=== PATIENT | female | born 1940 | race Caucasian/White ===

== ENCOUNTER 2017-05-18 04:03 | Emergency (ER) | payer MEDICARE, BC ==
[2017-05-18] MEDS ORDERED: Dexamethasone 4 MG TAB ONE (06:17)
== END 2017-05-18 06:50 | disposition home or self-care (01) ==
LOC: ERS 04:03
DX: K14.8 Other diseases of tongue (principal); I10 Essential (primary) hypertension; Z79.899 Other long term (current) drug therapy; Z79.82 Long term (current) use of aspirin
CPT/HCPCS: 99283; J8540

== ENCOUNTER 2018-01-20 10:47 | Outpatient (CLI) | payer MEDICARE, BC | END 2018-01-20 10:48 | disposition home or self-care (01) | LOC: BICMAMMO 10:47 | PROVIDERS: ATTEND Obstetrics & Gynecology | DX: Z12.31 Encounter for screening mammogram for malignant neoplasm of breast (principal); R92.1 Mammographic calcification found on diagnostic imaging of breast; Z80.3 Family history of malignant neoplasm of breast | CPT/HCPCS: 77063; 77067 ==

== ENCOUNTER 2018-01-25 00:07 | Emergency (ER) | payer MEDICARE, BC ==
[2018-01-25] MEDS ORDERED: Dexamethasone 4 mg/ml Vial ONE ×2 (00:21→00:24)
== END 2018-01-25 02:18 | disposition home or self-care (01) ==
LOC: ERS 00:07
DX: R22.0 Localized swelling, mass and lump, head (principal); I10 Essential (primary) hypertension; Z79.899 Other long term (current) drug therapy; Z79.82 Long term (current) use of aspirin
CPT/HCPCS: 99283; J1100

== ENCOUNTER 2019-02-02 14:37 | Outpatient (CLI) | payer MEDICARE, BC ==
--- NOTE | 2019-02-02 15:22 | MMO ---
Bilateral MAMMO Bilat Screen [facility]. CLINICAL HISTORY: Patient is 78 years old and is seen for screening. The patient has the following family history of breast cancer: daughter, at age 49 and sister. The patient has no personal history of cancer. VIEWS: The views performed were: bilateral craniocaudal with tomosynthesis; bilateral mediolateral oblique with tomosynthesis; and right mediolateral oblique. FILMS COMPARED: The present examination has been compared to prior imaging studies performed at [facility] on 12/19/2014, 12/27/2015, 12/31/2016 and 01/20/2018. This study has been interpreted with the assistance of computer-aided detection. MAMMOGRAM FINDINGS: There are scattered fibroglandular densities. There are stable benign appearing calcifications seen in both breasts. There are also vascular calcifications. There are no suspicious masses, suspicious calcifications, or new areas of architectural distortion. IMPRESSION: THERE IS NO MAMMOGRAPHIC EVIDENCE OF MALIGNANCY. A ROUTINE FOLLOW-UP MAMMOGRAM IN 1 YEAR IS RECOMMENDED. THE RESULTS OF THIS EXAM WERE SENT TO THE PATIENT. ACR BI-RADS Category 2 - Benign finding MAMMOGRAPHY NOTE: 1. A negative mammogram report should not delay a biopsy if a dominant of clinically suspicious mass is present. 2. Approximately 10% to 15% of breast cancers are not detected by mammography. 3. Adenosis and dense breasts may obscure an underlying neoplasm. Reported by: YADIEL HERNANDEZ MD Electonically Signed: [id number]
== END 2019-02-02 14:38 | disposition home or self-care (01) ==
LOC: BICMAMMO 14:37
PROVIDERS: ATTEND Obstetrics & Gynecology
DX: Z12.31 Encounter for screening mammogram for malignant neoplasm of breast (principal); Z80.3 Family history of malignant neoplasm of breast
CPT/HCPCS: 77063; 77067

== ENCOUNTER 2019-03-31 07:49 | Outpatient (CLI) | payer MEDICARE, BC ==
[2019-03-31 08:40] LABS: Estimated GFR-MDRD - POC Greater than 90
--- NOTE | 2019-03-31 09:27 | MRI ---
MRI cervical spine noncontrast: DATE: 03/31/2019 HISTORY: 78-year-old female with cervicalgia and cervical spondylosis. FINDINGS: Vertebral body heights are maintained. No significant spondylolisthesis. Cervical spinal cord is norm al in size and signal. Disc-osteophyte complexes, mostly broad-based, protruding into the anterior aspect of the spinal canal. Ligamentum flavum thickening protrude into the posterior aspect of spinal canal at multiple levels. Moderate and severe bilateral facet DJD at almost all levels. No high-grade disc space narrowing. C1-2: No high-grade central stenosis. C2-3: No high-grade central stenosis or neural foraminal stenosis. Ankylosis of right facet joint. C3-4: Mild to moderate central spinal canal stenosis. Moderate bilateral neural foraminal stenosis. B one marrow edema involving right facet complex. Right facet joint effusion. C4-5: Moderate-severe central spinal canal stenosis. Severe bilateral neural foraminal stenosis, left greater than right. C5-6: Moderate central spinal canal stenosis. Small bilateral nerve root sleeve cysts. Moderate to se [place] right neural foraminal stenosis. Moderate left neural foraminal stenosis. C6-7: Moderate to severe central spinal canal stenosis. Mild bilateral neural foraminal stenosis. Sma ll bilateral nerve root sleeve cysts. C7-T1: Moderate to severe central spinal canal stenosis. Mild to moderate bilateral neural foraminal stenosis. IMPRESSION: 1. Cervical spondylosis with multilevel bilateral high-grade facet osteoarthrosis, including severe, and multilevel moderate degenerative disc disease. 2. Multilevel central spinal canal stenosis and neural foraminal stenosis of varying degrees. 3. Ankylosis of right C2-3 facet joint. 4. Right C3-4 facet arthritis, including joint effusion
--- NOTE | 2019-03-31 10:44 | MRI ---
MRI OF LUMBAR SPINE WITH AND WITHOUT CONTRAST: 03/31/2019 COMPARISON: 09/26/2012. HISTORY: Lumbar stenosis, back pain, multiple prior lumbar spine surgeries. TECHNIQUE: Multiplanar multisequence MR imaging of the lumbar spine obtained with and without contrast. FINDINGS: The sagittal STIR imaging demonstrates no focal area of osseous marrow edema. There is 6 mm of anterolisthesis at L3-4, unchanged when compared to the prior examination. Conus medullaris terminates at the T12-L1 level. T12-L1: No significant central canal or neural foraminal stenosis. L1-2: There is disc space narrowing with disc desiccation, mild bilateral facet hypertrophy, and mild disc bulge. No significant central canal or neural foraminal stenosis. L2-3: There is disc space narrowing and disc desiccation with mild disc bulge causing mild central ca nal stenosis. Bilateral facet hypertrophy present with mild bilateral neural foraminal stenosis. L3-4: Prominent bilateral facet hypertrophy. There is disc space narrowing with disc desiccation and disc bulge. There is severe central canal stenosis and moderate bilateral neural foraminal stenosis, left greater than right. L4-5: There is disc space narrowing with disc desiccation and mild disc bulge causing mild central ca nal stenosis. Mild bilateral facet hypertrophy with mild bilateral neural foraminal stenosis. L5-S1: There is disc space narrowing with disc desiccation and mild disc bulge as well as mild bilate ral facet hypertrophy. Mild bilateral neural foraminal stenosis, right greater than left. Bilateral laminectomy changes are present at L3, L4, and L5 levels. There is a cyst emanating from the upper pole of the right kidney anteriorly measuring 3.1 cm. The imaged retroperitoneal structures appear grossly unremarkable otherwise. The postcontrast imaging demonstrates no abnormal enhancement involving the contents of the thecal sa c, the intervertebral discs, or the imaged osseous structures. Incidental note is made of significant incompletely imaged sigmoid diverticulosis. When compared to the prior examination, the degree of multilevel central canal and neural foraminal s tenosis within the lower lumbar spine is grossly unchanged aside from mild interval worsening in the degree of central canal stenosis at the L3-4 level. IMPRESSION: Postoperative and degenerative change within the lumbar spine as detailed above. Transcribed Date/Time: 03/31/2019 11:10 AM
[2019-03-31] MEDS ORDERED: Magnevist 469MG/ML 20 ML VIAL ONE (11:55)
== END 2019-03-31 07:50 | disposition home or self-care (01) ==
LOC: BICMRI 07:49
PROVIDERS: ATTEND Neurological Surgery
DX: M48.062 Spinal stenosis, lumbar region with neurogenic claudication (principal); M47.816 Spondylosis without myelopathy or radiculopathy, lumbar region; M43.16 Spondylolisthesis, lumbar region; M47.817 Spondylosis without myelopathy or radiculopathy, lumbosacral region; Z98.890 Other specified postprocedural states
CPT/HCPCS: 72141; 72158; 82565; A9579

== ENCOUNTER 2019-05-15 06:56 | Inpatient (IN) | payer MEDICARE, BC ==
[2019-05-12 11:28] VITALS: BMI 30.9
[2019-05-15 08:35] LABS: #Eosinphils 0.2 thou/uL (0.0-0.7); #Lymphocytes 1.6 thou/uL (1.20-3.40); #Monocytes 0.8 thou/uL (0.11-0.59); #Neutrophils 7.9 thou/uL (1.40-6.50); %Basophils 0.3 % (0.0-1.0); %Eosinophils 1.5 % (0.0-10.0); %Lymphocytes 14.9 % (21.0-51.0); %Neutrophils 75.3 % (42.0-75.0); Hemoglobin 14.4 g/dL (12.0-16.0); Mean Corpuscular HGB CONC 34.8 g/dL (32.0-36.0); Mean Corpuscular Hemoglobin 31.8 pg (27.0-31.0); Mean Corpuscular Volume 91.4 fL (78.0-98.0); Mean Platelet Volume 7.4 fL (7.4-10.4); Platelet Count 227 thou/uL (130-400); RBC Distribution Width 11.8 % (11.5-14.5); Red Blood Cell (RBC) Count 4.52 mill/uL (4.20-5.40); White Blood Cell (WBC) Count 10.5 thou/uL (4.8-10.8)
[2019-05-15] MEDS ORDERED: Sodium Chloride 0.9% 10 ML ONE (08:52)
[2019-05-15 08:57] LABS: Bilirubin Negative (Negative); Blood, Urine Large (Negative); Clarity Turbid (Clear); Glucose, Urine (Dipstick) Negative (Negative); Leukocyte Moderate (Negative); Nitrite Negative (Negative); Protein, Urine (Dipstick) 100 mg/dL (Neg-Trace); Urobilinogen 0.2 mg/dL (Less than 2)
[2019-05-15 09:01] LABS: Anion Gap 20 mmol/L (10-20); BUN (Urea Nitrogen) 12 mg/dL (9.8-20.1); Calc. Creatinine Clearance 105 mL/min (70-130); Calcium 9.6 mg/dL (7.8-10.44); Carbon Dioxide 16 mmol/L (23-31); Chloride 107 mmol/L (98-107); Estimated GFR-MDRD Greater than 90; Glucose 80 mg/dL (83-110); Potassium 4.7 mmol/L (3.5-5.1); Sodium 138 mmol/L (136-145)
[2019-05-15 09:03] LABS: RBC/HPF Greater than 50 HPF (0-3); Squamous Epithelial 0-3 HPF (0-3); WBC/HPF Greater Than 50 HPF (0-3)
[2019-05-15 09:04] LABS: Bacteria/HPF Rare-Few HPF (None Seen)
[2019-05-15] MEDS ORDERED: Fentanyl 100 MCG/2 ML VIAL ONE ×3 (09:17→11:15)
[2019-05-15] MEDS ORDERED: Lidocaine 1% PF 5 ML VIAL ONE (10:09)
[2019-05-15] MEDS ORDERED: Dexamethasone 20 MG/5 ML VIAL ONE (10:09)
[2019-05-15] MEDS ORDERED: PHENYLEPHRINE-NS 100 MCG/ML 10 ML SYRINGE ONE (10:09)
[2019-05-15] MEDS ORDERED: Ondansetron PF 4 MG/2 ML Vial ONE (10:09)
[2019-05-15] MEDS ORDERED: PROPOFOL 200 MG/20 ML VIAL ONE (10:09)
[2019-05-15] MEDS ORDERED: Ketorolac Tromethamine 30 MG/ML VIAL ONE (10:09)
[2019-05-15] MEDS ORDERED: Rocuronium Bromide 10 MG/ML (10ML VIAL) ONE (10:09)
[2019-05-15] MEDS ORDERED: Glycopyrrolate 0.2 MG/ML 5 ML SYRINGE ONE (10:09)
[2019-05-15] MEDS ORDERED: Promethazine HCl 25 MG/ML VIAL SLOW IVP PRN (11:08)
[2019-05-15] MEDS ORDERED: Ondansetron HCl/PF 4 MG/2 ML Vial IVP PRN (11:08)
[2019-05-15] MEDS ORDERED: Promethazine HCl 25 MG/ML VIAL IM PRN (11:08)
[2019-05-15] MEDS ORDERED: tiZANidine HCl 4 MG TAB PO PRN (11:23)
[2019-05-15] MEDS ORDERED: Morphine 4 MG/ML VIAL SLOW IVP PRN (11:23)
[2019-05-15] MEDS ORDERED: diphenhydrAMINE 25 MG CAP PO PRN (11:23)
[2019-05-15] MEDS ORDERED: Bisacodyl 10 MG SUPP PR PRN (11:23)
[2019-05-15] MEDS ORDERED: Mag-Al 1200 mg/1200 mg/30 ML UDCUP PO PRN (11:23)
[2019-05-15] MEDS ORDERED: traMADol HCl 50 MG TAB PO PRN ×2 (11:23)
[2019-05-15] MEDS ORDERED: diphenhydrAMINE 50 MG/ML VIAL IVP PRN (11:23)
[2019-05-15] MEDS ORDERED: Promethazine 25 MG TAB PO PRN (11:23)
[2019-05-15] MEDS ORDERED: Promethazine HCl 12.5 MG SUPP PR PRN (11:23)
[2019-05-15] MEDS ORDERED: HYDROcodone/Acetaminophen 10/325 mg Tablet PO PRN (11:23)
[2019-05-15] MEDS ORDERED: Ondansetron PF 4 MG/2 ML Vial IM PRN (11:23)
[2019-05-15] MEDS ORDERED: Milk Of Magnesia 30 ML UDCUP PO PRN (11:23)
--- NOTE | 2019-05-15 12:13 | OP ---
DATE OF PROCEDURE: 05/15/2019 BELLSTAFF: Kathryn Pereira PA-C PROCEDURES PERFORMED: L3-L4 laminectomy, posterolateral arthrodesis, pedicle screw instrumentation L3-L4, demineralized bone matrix, local morselized autograft. DESCRIPTION OF PROCEDURE: The patient was brought to the operating room and intubated. She was rolled in a prone position on gel-filled chest rolls. The previous incision was reopened and the L3-L4 level was identified. After complete exposure, we performed L4 and L3 laminectomies completely decompressing the neural elements from extensive scar and bony buildup. After complete decompression had been secured, pedicle screws were placed at right L3 and right L4, but the bone was found to be extremely soft and osteoporotic. All these screws were placed successfully. I did not attempt to place left-sided screws given elevated risk of complication. We next secured the sylwia into the screws, connected by nuts, which were final tightened. The wound was then extensively irrigated and MAC hemostasis was secured. A combination of demineralized bone matrix and local morselized autograft were laid over the lamina and posterolateral surfaces for the purpose of arthrodesis. Vancomycin powder was applied and the wound was then closed in anatomic layers over drain. Job ID: [id number]
[2019-05-15] MEDS ORDERED: EPINEPHrine 1 MG/ML AMP IV PRN (13:09)
[2019-05-15] MEDS ORDERED: Acetaminophen 325 MG TAB PO PRN (13:13)
[2019-05-15] MEDS ORDERED: Polyvinyl Alcohol 1.4%/Povidone 0.6% Opth Drops EA EYE PRN (13:14)
[2019-05-15] MEDS ORDERED: clonazePAM 0.5 MG TAB PO PRN (13:15)
[2019-05-15] MEDS: Sodium Chloride 0.9% 1,000 ML IV SCH (13:22)
--- NOTE | 2019-05-15 14:58 | CON ---
DATE OF CONSULTATION: 05/15/2019 REQUESTING PHYSICIAN: Dr. Savage of Neurosurgery. PURPOSE: Medical management. HISTORY OF PRESENT ILLNESS: This is a 78-year-old female, who presented to the hospital today for surgery secondary to lumbar stenosis with neurogenic claudication. The patient reports she has been in her usual state of health up until the middle of last week when she started having pain with urination. In addition, she has had decreasing urine output, red urine, increasing frequency of urination. The symptoms improved for a few days, however are worse again today. She denies any fevers, chills, nausea, vomiting or abdominal pain. She denies any chest pain or difficulty breathing. She reports her last UTI was years ago. PAST MEDICAL HISTORY: 1. Hypertension. 2. Arthritis. 3. Unknown allergic reaction, for which she carries an EpiPen. 4. Restless legs. 5. Macular degeneration. 6. GERD. PAST SURGICAL HISTORY: 1. Back surgery. 2. . 3. Left knee arthroscopy. 4. Hysterectomy. 5. Bladder suspension. 6. Bilateral knee replacement. 7. Carpal tunnel release. 8. Spinal stenosis surgery. 9. Cataract surgery. MEDICATIONS: Reconciled with the list on the chart. 1. Acetaminophen 650 mg every 4 hours as needed. 2. Elavil 10 mg 2 tablets daily. 3. Norvasc 5 mg daily. 4. Aspirin 81 mg daily. 5. Vitamin B complex daily. 6. Calcium with vitamin D3 daily. 7. Refresh Optive eyedrops and Refresh Liquigel eyedrops as needed. 8. Clonazepam 0.5 mg b.i.d. as needed. 9. EpiPen as needed. 10. Glucosamine 2 tablets daily. 11. Ibuprofen 200 mg every 6 hours as needed. 12. Mometasone nose spray, for which she uses daily. 13. Multivitamin daily. 14. Hopkins-3 fish oil twice daily. 15. Omeprazole 20 mg twice daily. 16. PreserVision AREDS 2 Softgels two capsules daily. 17. Vitamin E 400 units daily. FAMILY HISTORY: Significant for heart disease and hypertension. SOCIAL HISTORY: The patient denies alcohol or tobacco, her daughter is her surrogate decision maker, and she is a full code. ALLERGIES: TO CIPRO. REVIEW OF SYSTEMS: Positive for UTI with the associated symptoms noted above. Negative for fevers, chills, nausea, vomiting, abdominal pain, chest pain or shortness of breath. All remaining review of systems are reviewed and negative. PHYSICAL EXAMINATION: VITAL SIGNS: Temp 97.2, pulse 74, respirations 18, blood pressure 138/84, and sat 92% on room air. GENERAL: Awake, alert, responsive, in no apparent distress. Able to speak in full sentences. HEENT: Her pupils are equal and round. Oral mucosa pink and moist. NECK: Supple and nontender. LYMPHATICS: No palpable cervical or supraclavicular lymphadenopathy. LUNGS: Clear to auscultation bilateral. No audible wheezing, rhonchi or rales. HEART: Normal S1 and S2. Regular rate and rhythm. No significant murmur. ABDOMEN: Soft. Present bowel sounds. Nontender and nondistended. EXTREMITIES: No edema. VASCULAR: 2+ dorsalis pedis pulses. NEUROLOGIC: No focal deficits. SKIN: No visible rashes. PSYCHIATRIC: Appears euthymic. LABORATORY DATA: Reviewed. CBC 10.5, 14.4, 41.3, and 227. Chemistry; 138, 4.7, 107, 16, 12, 0.58, and 80 with a calcium of 9.6. Urinalysis shows present protein, large blood, greater than 50 red blood cells and white blood cells, and moderate leukocyte esterase. EKG is personally reviewed, sinus rhythm, normal axis, normal intervals, no ST changes. IMPRESSION: 1. Status post lumbar surgery with Dr. Savage today. 2. Urinary tract infection. 3. Hypertension, appears controlled. 4. Restless legs syndrome. 5. Macular degeneration. 6. Arthritis. 7. Unknown allergic reaction in the past, for which she has EpiPen. 8. Gastroesophageal reflux disease. PLAN: 1. Postsurgical care per Dr. Savage. 2. The patient is currently on cefazolin. We will continue this and request that the lab start a urine culture from the urine obtained pre-operatively. If the cefazolin is discontinued per Neurosurgery, we will initiate antibiotic therapy, monitor the culture to determine type of oral antibiotic to transition to and duration of treatment. 3. I placed hold parameters on the amlodipine to avoid hypotension. 4. Reviewed other medications which are primarily vitamins for the patient and these appear appropriate. 5. Agree with a regular diet, modified a heart healthy of significantly elevated blood pressures. 6. We will monitor renal function while here. 7. DVT prophylaxis per Neurosurgery. 8. In review of Neurosurgery's notes, the patient should be off aspirin for 2 weeks postoperatively. 9. Code status is full. Surrogate decision maker is the patient's daughter. 10. Reviewed the plan of care with the patient and her daughter, the role of hospitalists as well as how the UTI is being addressed. No questions or further needs at the end of evaluation. Thank you for this consult. We will follow along. Please call with any questions. Job ID: [id number] [facility] SYSTEMErwin
[2019-05-15] MEDS: CEFAZOLIN 2 GM in Premix Bag 1 BAG IVPB SCH ×2 (15:52→21:30)
[2019-05-15] MEDS: HYDROcodone/Acetaminophen 10/325 mg Tablet PO PRN ×2 (16:34→23:53)
[2019-05-15] MEDS ORDERED: Mometasone Furoate 30 PUFF 220 MCG INH SCH (18:30)
[2019-05-15] MEDS ORDERED: Polyvinyl Alcohol 1.4%/Povidone 0.6% Opth Drops EA EYE SCH (21:00)
[2019-05-15] MEDS: Fish Oil 1,000 MG CAP PO SCH (21:30)
[2019-05-16] MEDS: Sodium Chloride 0.9% 1,000 ML IV SCH (02:27)
[2019-05-16 05:42] LABS: Anion Gap 13 mmol/L (10-20); BUN (Urea Nitrogen) 12 mg/dL (9.8-20.1); Calc. Creatinine Clearance 92 mL/min (70-130); Calcium 8.9 mg/dL (7.8-10.44); Carbon Dioxide 27 mmol/L (23-31); Chloride 102 mmol/L (98-107); Estimated GFR-MDRD 87; Glucose 130 mg/dL (83-110); Potassium 3.9 mmol/L (3.5-5.1); Sodium 138 mmol/L (136-145)
[2019-05-16] MEDS: CEFAZOLIN 2 GM in Premix Bag 1 BAG IVPB SCH (06:17)
[2019-05-16] MEDS ORDERED: Stress 600 With Zinc 1 TAB PO SCH (09:00)
[2019-05-16] MEDS ORDERED: Amitriptyline HCl 10 MG TAB PO SCH (09:00)
[2019-05-16] MEDS ORDERED: Calcium Carbonate + Vit D 1 TAB PO SCH (09:00)
[2019-05-16] MEDS ORDERED: FLU VACC TS2019-20(65YR UP)/PF 180 MCG/0.5 ML SYRINGE IM ONE (09:00)
[2019-05-16] MEDS ORDERED: Multivitamin W/ Minerals 1 TAB PO SCH (09:00)
[2019-05-16] MEDS ORDERED: Amlodipine 5 MG TAB PO SCH ×2 (09:00)
[2019-05-16] MEDS ORDERED: Vit A,C & E/Lutein/Minerals Tablet PO SCH (09:00)
[2019-05-16] MEDS ORDERED: Prevnar 13-Val Conj/PF 0.5 ML SYRINGE IM ONE (09:00)
[2019-05-16] MEDS ORDERED: OSTEO BI FLEX PO SCH (09:00)
[2019-05-16] MEDS: Fish Oil 1,000 MG CAP PO SCH (09:41)
--- NOTE | 2019-05-16 10:15 | DIS ---
DATE OF ADMISSION: 05/15/2019 DATE OF DISCHARGE: 05/16/2019 HOSPITAL COURSE: The patient is a 78-year-old female, who is known to us for prior L3 through L4 decompression who was found to have increased degenerative changes and stenosis at L3-L4 and underwent L3-L4 decompression and fusion on 05/15/2018. Following the surgery, she was transitioned to the Med/Surg floor, where she has had minimal pain. She has been controlled well with p.o. medications. She has been up walking easily with her walker, tolerating regular diet, and voiding appropriately. She has had no incisional drainage issues. SERGIO had minimal output with only 65 mL overnight. On exam this morning, the patient is awake, alert, in no acute distress. She has free active range of motion of all extremities. Her incision is clean, dry, and intact. SERGIO drain has a small amount of serosanguineous fluid in the bulb. We will plan to remove the SERGIO drain and dismiss the patient to home. I have discussed home care precautions. We will follow up with the patient in 2 weeks. Scripts for Morrow, Zanaflex, and Keflex have been provided. Job ID: [id number]
--- NOTE | 2019-05-16 11:06 | EKG ---
Test Reason : PREOP Blood Pressure : / mmHG Vent. Rate : 067 BPM Atrial Rate : 067 BPM P-R Int : 174 ms QRS Dur : 086 ms QT Int : 418 ms P-R-T Axes : 055 011 037 degrees QTc Int : 441 ms Normal sinus rhythm Normal ECG When compared with ECG of 16-FEB-2016 20:44, No significant change was found Confirmed by DR. Jerrica ATKINSON ([id number]) on 05/16/2019 11:06:07 AM Referred By: JOSH Confirmed By:DR. Jerrica ATKINSON
[2019-05-16 11:33] VITALS: BP 127/70; TEMP 98.4
== END 2019-05-16 13:33 | disposition home or self-care (01) | DRG 460 ==
LOC: SURG A 06:56
PROVIDERS: ADMIT Neurological Surgery; ATTEND Neurological Surgery
PROC: 0SG0071 Fusion of Lumbar Vertebral Joint with Autologous Tissue Substitute, Posterior Approach, Posterior Column, Open Approach (ICD-10-PCS; principal; 2019-05-15)
PROC: 01NB0ZZ Release Lumbar Nerve, Open Approach (ICD-10-PCS; 2019-05-15)
DX: M48.061 Spinal stenosis, lumbar region without neurogenic claudication (principal); N39.0 Urinary tract infection, site not specified; M43.16 Spondylolisthesis, lumbar region; I10 Essential (primary) hypertension; G25.81 Restless legs syndrome; K21.9 Gastro-esophageal reflux disease without esophagitis; Z96.653 Presence of artificial knee joint, bilateral; H35.30 Unspecified macular degeneration; M19.90 Unspecified osteoarthritis, unspecified site; Z28.21 Immunization not carried out because of patient refusal; Z90.710 Acquired absence of both cervix and uterus; Z79.899 Other long term (current) drug therapy; Z88.1 Allergy status to other antibiotic agents
CPT/HCPCS: 36415; 76000; 80048; 81001; 85025; 87086; 93005; 93010; C1713; C1768; J0690; J1100; J1885; J2001; J2405; J2704; J3010; J3370; J3490

== ENCOUNTER 2019-05-30 15:14 | Outpatient (CLI) | payer MEDICARE, BC ==
--- NOTE | 2019-05-30 15:41 | RAD ---
EXAM: XR Lumbar Spine 2 Or 3 View PROVIDED CLINICAL HISTORY: Spondylolisthesis of lumbar region. Two-week follow-up surgical evaluation. COMPARISON: MRI lumbar spine 03/31/2019 FINDINGS: In keeping with numbering system on MRI lumbar spine, there is now evidence of unilateral right-sided pedicular screws with posterior sylwia transfixing the L3-4 level. Grade 1 anterolisthesis at this level is again seen. No hardware complications identified. Laminectomy defects are seen posteriorly. Skin clips are also seen posteriorly. There is loss of intervertebral disc height at multiple levels of the lumbar spine. The vertebral bod y heights appear to be within normal limits. Multilevel osteophytes are seen. IMPRESSION: Postsurgical and degenerative changes of the lumbar spine.
== END 2019-05-30 15:15 | disposition home or self-care (01) ==
LOC: TBSIIMAG 15:14
DX: M43.16 Spondylolisthesis, lumbar region (principal); M47.816 Spondylosis without myelopathy or radiculopathy, lumbar region; Z98.890 Other specified postprocedural states
CPT/HCPCS: 72100

== ENCOUNTER 2020-02-20 13:26 | Outpatient (CLI) | payer MEDICARE, BC ==
--- NOTE | 2020-02-20 15:08 | MMO ---
Bilateral MAMMO Bilat Screen [facility]. CLINICAL HISTORY: Patient is 79 years old and is seen for screening. The patient has the following family history of breast cancer: daughter, at age 49 and sister. The patient has no personal history of cancer. VIEWS: The views performed were: bilateral craniocaudal with tomosynthesis and bilateral mediolateral oblique with tomosynthesis. FILMS COMPARED: The present examination has been compared to prior imaging studies performed at [facility] on 12/27/2015, 12/31/2016, 01/20/2018 and 02/02/2019. This study has been interpreted with the assistance of computer-aided detection. MAMMOGRAM FINDINGS: There are scattered fibroglandular densities. There are no suspicious masses, suspicious calcifications, or new areas of architectural distortion. IMPRESSION: THERE IS NO MAMMOGRAPHIC EVIDENCE OF MALIGNANCY. A ROUTINE FOLLOW-UP MAMMOGRAM IN 1 YEAR IS RECOMMENDED. THE RESULTS OF THIS EXAM WERE SENT TO THE PATIENT. ACR BI-RADS Category 1 - Negative MAMMOGRAPHY NOTE: 1. A negative mammogram report should not delay a biopsy if a dominant of clinically suspicious mass is present. 2. Approximately 10% to 15% of breast cancers are not detected by mammography. 3. Adenosis and dense breasts may obscure an underlying neoplasm. Reported by: Shannan HOOKER Electonically Signed: [id number]
== END 2020-02-20 13:27 | disposition home or self-care (01) ==
LOC: BICMAMMO 13:26
PROVIDERS: ATTEND Obstetrics & Gynecology
DX: Z12.31 Encounter for screening mammogram for malignant neoplasm of breast (principal); Z80.3 Family history of malignant neoplasm of breast
CPT/HCPCS: 77063; 77067

== ENCOUNTER 2021-04-02 09:53 | Outpatient (CLI) | payer MEDICARE, BC | END 2021-04-02 09:54 | disposition home or self-care (01) | LOC: BICMAMMO 09:53 | PROVIDERS: ATTEND Obstetrics & Gynecology | DX: Z12.31 Encounter for screening mammogram for malignant neoplasm of breast (principal); Z80.3 Family history of malignant neoplasm of breast | CPT/HCPCS: 77063; 77067 ==

== ENCOUNTER 2022-04-30 09:55 | Outpatient (CLI) | payer MEDICARE, BC | END 2022-04-30 09:56 | disposition home or self-care (01) | LOC: BICMAMMO 09:55 | PROVIDERS: ATTEND Obstetrics & Gynecology | DX: Z12.31 Encounter for screening mammogram for malignant neoplasm of breast (principal); Z80.3 Family history of malignant neoplasm of breast | CPT/HCPCS: 77063; 77067 ==

== ENCOUNTER 2023-10-27 20:31 | Emergency (ER) | payer MEDICARE, BC ==
[2023-10-27] MEDS ORDERED: Lidocaine 1% w/Epinephrine 1:100K 20 ML VIAL ONE (21:46)
[2023-10-27] MEDS ORDERED: Bacitracin 1 PK ONE (23:35)
[2023-10-27] MEDS ORDERED: Acetaminophen 325 MG TAB ONE (23:35)
[2023-10-27] MEDS ORDERED: CEFAZOLIN 1 GM VIAL ONE (23:38)
[2023-10-27] MEDS ORDERED: Lidocaine 1% MPF 2 ML VIAL ONE (23:38)
== END 2023-10-28 00:30 | disposition home or self-care (01) ==
LOC: ERS 20:31
DX: S02.2XXA Fracture of nasal bones, initial encounter for closed fracture (principal); S01.81XA Laceration without foreign body of other part of head, initial encounter; I10 Essential (primary) hypertension; Z79.899 Other long term (current) drug therapy; Z79.82 Long term (current) use of aspirin; W01.0XXA Fall on same level from slipping, tripping and stumbling without subsequent striking against object, initial encounter; Y92.64 Mine or pit as the place of occurrence of the external cause
CPT/HCPCS: 12013; 70450; 70486; 72125; 73110; 96372; 99283; J0690

== ENCOUNTER 2024-05-24 09:47 | Outpatient (CLI) | payer MEDICARE, BC | END 2024-05-24 09:48 | disposition home or self-care (01) | LOC: BICMAMMO 09:47 | PROVIDERS: ATTEND Student in an Organized Health Care Education/Training Program | DX: Z12.31 Encounter for screening mammogram for malignant neoplasm of breast (principal); Z80.3 Family history of malignant neoplasm of breast | CPT/HCPCS: 77063; 77067 ==

== ENCOUNTER 2024-12-28 09:25 | Outpatient (CLI) | payer MEDICARE, BC | END 2024-12-28 09:26 | disposition home or self-care (01) | LOC: SCSMRI 09:25 | PROVIDERS: ATTEND Student in an Organized Health Care Education/Training Program | DX: S72.052A Unspecified fracture of head of left femur, initial encounter for closed fracture (principal); M16.0 Bilateral primary osteoarthritis of hip; S76.012A Strain of muscle, fascia and tendon of left hip, initial encounter; M62.552 Muscle wasting and atrophy, not elsewhere classified, left thigh | CPT/HCPCS: 72195 ==

== ENCOUNTER 2025-01-02 10:58 | Outpatient (CLI) | payer MEDICARE, BC ==
[2025-01-02 13:45] LABS: #Basophils 0.04 10x3/uL (0.0-0.2); #Eosinophils 0.16 10x3/uL (0.0-0.7); #Monocytes 0.51 10x3/uL (0.11-0.59); #Neutrophils 3.29 10x3/uL (1.40-6.50); %Basophils 0.7 % (0.0-1.0); %Eosinophils 2.9 % (0.0-10.0); %Lymphocytes 26.2 % (21.0-51.0); %Monocytes 9.4 % (0.0-10.0); %Neutrophils 60.4 % (42.0-75.0); Hematocrit 40.7 % (36.0-47.0); Hemoglobin 13.0 g/dL (12.0-16.0); Mean Corpuscular Hemoglobin 29.1 pg (27.0-31.0); Mean Corpuscular Volume 91.3 fL (78.0-98.0); Platelet Count 217 10x3/uL (130-400); Red Blood Cell (RBC) Count 4.46 mill/uL (4.20-5.40); White Blood Cell (WBC) Count 5.45 10x3/uL (4.8-10.8)
== END 2025-01-02 10:59 | disposition home or self-care (01) ==
LOC: LABBT 10:58
PROVIDERS: ATTEND Student in an Organized Health Care Education/Training Program
DX: Z01.818 Encounter for other preprocedural examination (principal); S72.052A Unspecified fracture of head of left femur, initial encounter for closed fracture
CPT/HCPCS: 71046; 85025; 87081; 93005; 93010

== ENCOUNTER 2025-01-02 11:30 | Inpatient (IN) | payer MEDICARE, BC ==
[2025-01-02 11:57] VITALS: BMI 29.6
[2025-01-02 14:01] LABS: INR-International Normal Ratio 0.9; Prothrombin Time 12.5 sec (12.0-14.7)
[2025-01-02 14:22] LABS: ALT (SGPT) 13 U/L (Less than 34); AST (SGOT) 21 U/L (11-34); Albumin 4.2 g/dL (3.1-4.5); Alkaline Phosphatase 109 U/L (40-110); Anion Gap 16 mmol/L (10-20); BUN (Urea Nitrogen) 17 mg/dL (9.8-20.1); Bilirubin, Total 0.3 mg/dL (0.3-1.2); Calc. Creatinine Clearance 0 mL/min (70-130); Calcium 9.8 mg/dL (7.8-10.44); Carbon Dioxide 28 mmol/L (23-31); Chloride 103 mmol/L (98-107); Globulin 2.6 g/dL (2.4-3.5); Glucose 90 mg/dL (83-110); Potassium 3.6 mmol/L (3.5-5.1); Sodium 143 mmol/L (136-145)
[2025-01-03] MEDS ORDERED: Tranexamic Acid 1,000 MG/10 ML VIAL ONE (08:28)
[2025-01-03] MEDS ORDERED: Vancomycin HCl 1.5 GM VIAL ONE (08:29)
[2025-01-03] MEDS ORDERED: Acetaminophen 500 MG TAB ONE (08:29)
[2025-01-03] MEDS ORDERED: CEFAZOLIN 2 GM VIAL ONE (08:29)
[2025-01-03] MEDS ORDERED: PROPOFOL 40 ML ONE (10:50)
[2025-01-03] MEDS ORDERED: fentaNYL PF 100 MCG/2 ML SYRINGE ONE (10:50)
[2025-01-03] MEDS ORDERED: Rocuronium Bromide 10 MG/ML (10ML VIAL) ONE (10:51)
[2025-01-03] MEDS ORDERED: Lidocaine 1% PF 5 ML VIAL ONE (11:02)
[2025-01-03] MEDS ORDERED: Ondansetron PF 4 MG/2 ML Vial ONE (11:13)
[2025-01-03] MEDS ORDERED: Ketorolac Tromethamine 30 MG (1 mL) VIAL ONE (11:13)
[2025-01-03] MEDS ORDERED: PHENYLEPHRINE-NS 100 MCG/ML 10 ML SYRINGE ONE (11:15)
[2025-01-03] MEDS ORDERED: Ondansetron PF 4 MG/2 ML Vial IVP PRN (15:27)
[2025-01-03] MEDS ORDERED: diphenhydrAMINE 25 MG CAP PO PRN (15:27)
[2025-01-03] MEDS: Acetaminophen 500 MG TAB PO SCH (18:31)
[2025-01-03] MEDS: oxyCODONE 5 MG TAB PO PRN (18:35)
[2025-01-03] MEDS: Senokot S 8.6-50 MG TAB PO SCH (21:19)
[2025-01-04 07:32] LABS: #Basophils Less than 0.03 10x3/uL (0.0-0.2); #Eosinophils Less than 0.03 10x3/uL (0.0-0.7); #Monocytes 0.93 10x3/uL (0.11-0.59); #Neutrophils 8.51 10x3/uL (1.40-6.50); %Basophils 0.1 % (0.0-1.0); %Eosinophils 0.0 % (0.0-10.0); %Lymphocytes 8.1 % (21.0-51.0); %Monocytes 9.0 % (0.0-10.0); %Neutrophils 82.5 % (42.0-75.0); Hematocrit 36.3 % (36.0-47.0); Hemoglobin 11.7 g/dL (12.0-16.0); Mean Corpuscular Hemoglobin 29.8 pg (27.0-31.0); Mean Corpuscular Volume 92.4 fL (78.0-98.0); Platelet Count 206 10x3/uL (130-400); Red Blood Cell (RBC) Count 3.93 mill/uL (4.20-5.40); White Blood Cell (WBC) Count 10.32 10x3/uL (4.8-10.8)
[2025-01-04 07:47] LABS: Anion Gap 14 mmol/L (10-20); BUN (Urea Nitrogen) 13 mg/dL (9.8-20.1); Calc. Creatinine Clearance 113 mL/min (70-130); Calcium 9.3 mg/dL (7.8-10.44); Carbon Dioxide 24 mmol/L (23-31); Chloride 105 mmol/L (98-107); Glucose 114 mg/dL (83-110); Potassium 3.7 mmol/L (3.5-5.1); Sodium 139 mmol/L (136-145)
[2025-01-04] MEDS: Aspirin 81 mg Enteric Coated Tablet PO SCH (09:54)
[2025-01-04] MEDS: Multivitamin W/ Minerals 1 TAB PO SCH (09:54)
[2025-01-04] MEDS: Ferrous Gluconate 324 MG TAB PO SCH (09:54)
[2025-01-04] MEDS: clonazePAM 0.5 MG TAB PO SCH ×2 (18:10→19:00)
[2025-01-04] MEDS ORDERED: clonazePAM 0.5 MG TAB PO SCH (21:00)
[2025-01-05 06:09] LABS: Hematocrit 36.6 % (36.0-47.0); Hemoglobin 11.5 g/dL (12.0-16.0); Mean Corpuscular Hemoglobin 29.6 pg (27.0-31.0); Mean Corpuscular Volume 94.3 fL (78.0-98.0); Platelet Count 215 10x3/uL (130-400); Red Blood Cell (RBC) Count 3.88 mill/uL (4.20-5.40); White Blood Cell (WBC) Count 9.28 10x3/uL (4.8-10.8)
[2025-01-05 17:26] VITALS: BP 132/77; TEMP 98.1
[2025-01-05] MEDS ORDERED: clonazePAM 0.5 MG TAB PO SCH (21:00)
== END 2025-01-05 16:00 | disposition home or self-care (01) | DRG 522 ==
LOC: SURG A 01-03 07:31 → EDSTATUS 01-03 11:30 → SURG A 01-03 15:51
PROVIDERS: ADMIT Student in an Organized Health Care Education/Training Program; ATTEND Student in an Organized Health Care Education/Training Program
PROC: 0SRS0JA Replacement of Left Hip Joint, Femoral Surface with Synthetic Substitute, Uncemented, Open Approach (ICD-10-PCS; principal; 2025-01-03)
DX: S72.002A Fracture of unspecified part of neck of left femur, initial encounter for closed fracture (principal); I10 Essential (primary) hypertension; R06.2 Wheezing; G25.81 Restless legs syndrome; J30.9 Allergic rhinitis, unspecified; M19.90 Unspecified osteoarthritis, unspecified site; M54.2 Cervicalgia; M54.50 Low back pain, unspecified; Z96.653 Presence of artificial knee joint, bilateral; Z88.1 Allergy status to other antibiotic agents; Z88.8 Allergy status to other drugs, medicaments and biological substances; Z86.718 Personal history of other venous thrombosis and embolism; Z79.82 Long term (current) use of aspirin; Z98.890 Other specified postprocedural states; Z90.710 Acquired absence of both cervix and uterus; Z97.3 Presence of spectacles and contact lenses; Z97.4 Presence of external hearing-aid
CPT/HCPCS: 36415; 71046; 72170; 80048; 80053; 85025; 85027; 85610; 86850; 86900; 86901; 87081; 93005; 93010; C1713; C1776; J1100; J1885; J2405; J2704; J3010; J3373

== ENCOUNTER 2025-01-13 13:06 | Emergency (ER) | payer MEDICARE, BC ==
[2025-01-13 13:46] LABS: #Basophils 0.04 10x3/uL (0.0-0.2); #Eosinophils 0.46 10x3/uL (0.0-0.7); #Monocytes 0.56 10x3/uL (0.11-0.59); #Neutrophils 4.55 10x3/uL (1.40-6.50); %Basophils 0.6 % (0.0-1.0); %Eosinophils 6.6 % (0.0-10.0); %Lymphocytes 18.8 % (21.0-51.0); %Monocytes 8.0 % (0.0-10.0); %Neutrophils 64.7 % (42.0-75.0); Hematocrit 34.1 % (36.0-47.0); Hemoglobin 10.8 g/dL (12.0-16.0); Mean Corpuscular Hemoglobin 29.3 pg (27.0-31.0); Mean Corpuscular Volume 92.7 fL (78.0-98.0); Platelet Count 326 10x3/uL (130-400); Red Blood Cell (RBC) Count 3.68 mill/uL (4.20-5.40); White Blood Cell (WBC) Count 7.02 10x3/uL (4.8-10.8)
[2025-01-13 14:00] LABS: INR-International Normal Ratio 0.9; PTT 28.3 sec (22.9-36.1); Prothrombin Time 12.1 sec (12.0-14.7)
[2025-01-13 14:04] LABS: ALT (SGPT) 14 U/L (Less than 34); AST (SGOT) 23 U/L (11-34); Albumin 3.6 g/dL (3.1-4.5); Alkaline Phosphatase 105 U/L (40-110); Anion Gap 13 mmol/L (10-20); BUN (Urea Nitrogen) 17 mg/dL (9.8-20.1); Bilirubin, Total 0.2 mg/dL (0.3-1.2); Calc. Creatinine Clearance 0 mL/min (70-130); Calcium 10.3 mg/dL (7.8-10.44); Carbon Dioxide 28 mmol/L (23-31); Chloride 103 mmol/L (98-107); Globulin 3.4 g/dL (2.4-3.5); Glucose 97 mg/dL (83-110); Potassium 4.0 mmol/L (3.5-5.1); Sodium 140 mmol/L (136-145)
[2025-01-13 14:21] LABS: CAUTI Indications for Culture Dysuria,urgency,freq; Glucose, Urine (Dipstick) Normal (Negative); Leukocyte Negative Leu/uL (Negative); Protein, Urine (Dipstick) Negative (Neg-Trace); RBC/HPF 0-3 HPF (0-3); Specific Gravity, Urine 1.006 (1.002-1.036)
[2025-01-13 14:31] LABS: Bacteria/HPF Rare-Few HPF (None Seen)
[2025-01-13 14:32] LABS: Urine Culture Reflex No No
== END 2025-01-13 17:30 | disposition home or self-care (01) ==
LOC: ERS 13:06
DX: M79.89 Other specified soft tissue disorders (principal); M96.89 Other intraoperative and postprocedural complications and disorders of the musculoskeletal system; I10 Essential (primary) hypertension; Z79.01 Long term (current) use of anticoagulants; Z79.899 Other long term (current) drug therapy; R60.0 Localized edema
CPT/HCPCS: 36415; 76999; 80053; 81001; 83605; 85025; 85379; 85610; 85730; 86141; 87040

== ENCOUNTER 2025-03-27 10:29 | Outpatient (CLI) | payer MEDICARE, BC | END 2025-03-27 10:30 | disposition home or self-care (01) | LOC: BICCT 10:29 | PROVIDERS: ATTEND Student in an Organized Health Care Education/Training Program | DX: M25.562 Pain in left knee (principal); T84.84XA Pain due to internal orthopedic prosthetic devices, implants and grafts, initial encounter ==

== ENCOUNTER 2025-05-01 13:19 | Outpatient (CLI) | payer MEDICARE, BC | END 2025-05-01 13:20 | disposition home or self-care (01) | LOC: BICMAMMO 13:19 | PROVIDERS: ATTEND Student in an Organized Health Care Education/Training Program | DX: Z13.820 Encounter for screening for osteoporosis (principal); Z78.0 Asymptomatic menopausal state; M81.0 Age-related osteoporosis without current pathological fracture; M85.851 Other specified disorders of bone density and structure, right thigh | CPT/HCPCS: 77080 ==